=== PATIENT | male | born 1995 | race Caucasian/White ===

== ENCOUNTER 2018-06-22 05:30 | Emergency (ER) | payer BC ==
[~2018-06-22] VITALS: Ht 172.7 cm; Wt 59.0 kg
[~2018-06-22 05:30] MED LIST: CODACE30 PO; PRED10 PO; RXCODACET PO
[2018-06-22] MEDS ORDERED: ALBU90OI INH (06:11)
[2018-06-22] MEDS ORDERED: Percocet 5-3251 EACH PO (07:04)
== END 2018-06-22 07:25 | disposition home or self-care (01) ==
LOC: ER 05:30
DX: S02.652A Fracture of angle of left mandible, initial encounter for closed fracture (principal); F10.129 Alcohol abuse with intoxication, unspecified; Y04.8XXA Assault by other bodily force, initial encounter
CPT/HCPCS: 70486; 99284-25

== ENCOUNTER 2022-09-06 19:12 | Emergency (ER) | payer BC ==
[~2022-09-06] VITALS: Ht 172.7 cm; Wt 95.2 kg
[~2022-09-06 19:12] MED LIST changes: +ALBU90OI INH; +Percocet 5-3251 EACH PO
[2022-09-06 19:56] VITALS: BP 151/82
== END 2022-09-06 22:48 | disposition home or self-care (01) ==
LOC: ER 19:12
DX: S51.811A Laceration without foreign body of right forearm, initial encounter (principal); W01.10XA Fall on same level from slipping, tripping and stumbling with subsequent striking against unspecified object, initial encounter; J45.909 Unspecified asthma, uncomplicated
CPT/HCPCS: 73070